=== PATIENT | female | born 1950 | race Caucasian/White ===

== ENCOUNTER 2019-03-31 06:13 | Day surgery (SDC) | payer MEDICARE ==
[~2019-03-31] VITALS: Ht 149.9 cm; Wt 59.3 kg
[2019-03-31] MEDS ORDERED: LACTATED RINGERS 1,000 ML IV SCH (06:54)
[2019-03-31] MEDS ORDERED: EPINEPHRINE TOPICAL SOLN 1 MG/ML, 30ML ONE (06:57)
[2019-03-31] MEDS ORDERED: MIDAZOLAM 1 MG/ML, 2ML ONE (07:35)
[2019-03-31] MEDS ORDERED: FENTANYL PF 250 MCG/5ML ONE (07:36)
[2019-03-31] MEDS ORDERED: SUCCINYLCHOLINE 20 MG/ML, 10ML ONE (07:37)
[2019-03-31] MEDS ORDERED: DULO20CA45 PO (07:38)
[2019-03-31] MEDS ORDERED: METH10TA2 PO (07:38)
[2019-03-31] MEDS ORDERED: ESTR2TAB PO (07:38)
[2019-03-31] MEDS ORDERED: GABA600T7 PO (07:38)
[2019-03-31] MEDS ORDERED: OXYC-307 PO (07:38)
[2019-03-31] MEDS ORDERED: CARI350T PO (07:38)
[2019-03-31] MEDS ORDERED: FURO-93 PO (07:39)
[2019-03-31 07:41] VITALS: BP 159/78
[2019-03-31] MEDS ORDERED: MORPHINE SULFATE 4 MG/ML, 1ML IVPush PRN (08:00)
[2019-03-31] MEDS ORDERED: PROMETHAZINE 25 MG/ML, 1ML IM PRN ×2 (08:00)
[2019-03-31] MEDS ORDERED: PROMETHAZINE 25 MG SUPP PR PRN (08:00)
[2019-03-31] MEDS ORDERED: hydrALAzine 20 MG/ML, 1ML IV PRN (08:00)
[2019-03-31] MEDS ORDERED: OXYcodone 5 MG/5 ML ORAL.SOL UDC PO PRN (08:00)
[2019-03-31] MEDS ORDERED: ACETAMINOPHEN 325 MG TABLET PO PRN (08:00)
[2019-03-31] MEDS ORDERED: MEPERIDINE/PF 25MG/0.5ML IVPush PRN (08:00)
[2019-03-31] MEDS ORDERED: HYDROmorphone 2 MG/ML, 1ML IVPush PRN (08:00)
[2019-03-31] MEDS ORDERED: ONDANSETRON ODT 8 MG PO PRN (08:00)
[2019-03-31] MEDS ORDERED: FENTANYL PF 100 MCG/2ML IV PRN (08:00)
[2019-03-31] MEDS ORDERED: PROMETHAZINE 12.5 MG SUPP PR PRN (08:00)
[2019-03-31] MEDS ORDERED: PROMETHAZINE 25 MG/ML, 1ML IV PRN (08:00)
[2019-03-31] MEDS ORDERED: LABETALOL 5MG/ML, 20ML IV PRN (08:00)
[2019-03-31] MEDS ORDERED: ONDANSETRON 2MG/ML, 2ML IV PRN (08:00)
[2019-03-31] MEDS ORDERED: PROPOFOL 10 MG/ML, 20ML ONE (08:04)
[2019-03-31] MEDS ORDERED: ALBUTEROL SULFATE 2.5 MG/3 ML NPPB ONE (12:30)
== END 2019-03-31 13:50 | disposition home or self-care (01) ==
LOC: OUT 06:13
PROVIDERS: ATTEND Otolaryngology
DX: K14.8 Other diseases of tongue (principal); I25.10 Atherosclerotic heart disease of native coronary artery without angina pectoris; I25.2 Old myocardial infarction; Z98.890 Other specified postprocedural states
CPT/HCPCS: 31535; 88305; 88341; 88342; 93005; 94640; J0330; J2250; J2704; J3010; J7120